=== PATIENT | female | born 1985 | race Caucasian/White ===

== ENCOUNTER 2020-07-13 21:57 | Emergency (ER) | payer OTHER ==
[2020-07-13 23:23] VITALS: TEMP 98.6
[2020-07-14] MEDS: KETOROLAC 15 MG/ML 1 ML VIAL IM STA ×2 (01:16→01:19)
--- NOTE | 2020-07-14 01:16 | ED ---
Back Pain HPI - General Chief Complaint: Back Pain/Injury Stated Complaint: Fall,Back pain Time Seen by Provider: 07/14/20 00:26 Source: patient, EMS, RN notes reviewed Limitations: no limitations - History of Present Illness Initial Comments: 35-year-old female presented emergency department status post fall on her back while getting out of the shower. She notes that her left buttock and low back area is very painful. She is able to ambulate but has significant pain. She was sleeping when provider walk-in room to interview and examine her. She woke up kind of hazy and groggy but was able to move both lower extremities. Full range of motion and strength of her lower extremities. She wanted to come to the ER to get checked out to make sure nothing was broken. She stated that her pain was a 10 out of 10 constant. She denied any bladder or bowel incontinence. She denied any loss of consciousness or hitting her head. She denied any chest pain first breath headache nausea vomiting diarrhea constipation fever fatigue chills weakness numbness tingling - Related Data Home Medications Medication Instructions Recorded Confirmed No Known Home Medications 07/14/20 07/14/20 Allergies Allergy/AdvReac Type Severity Reaction Status Date / Time No Known Allergies Allergy Verified 07/13/20 23:23 Review of Systems ROS Statement: Those systems with pertinent positive or pertinent negative responses have been documented in the HPI. ROS Other: All systems not noted in ROS Statement are negative. Past Medical History Past Medical History: No Reported History History of Any Multi-Drug Resistant Organisms: None Reported Past Surgical History: No Surgical Hx Reported Past Psychological History: Anxiety, Depression Smoking Status: Current every day smoker Past Alcohol Use History: None Reported Past Drug Use History: Methamphetamine General Exam Limitations: no limitations General appearance: alert, in no apparent distress Head exam: Present: atraumatic, normocephalic, normal inspection ENT exam: Present: normal exam, mucous membranes moist Neck exam: Present: normal inspection. Absent: tenderness, meningismus, lymphadenopathy Respiratory exam: Present: normal lung sounds bilaterally. Absent: respiratory distress, wheezes, rales, rhonchi, stridor Cardiovascular Exam: Present: regular rate, normal rhythm, normal heart sounds. Absent: systolic murmur, diastolic murmur, rubs, gallop, clicks GI/Abdominal exam: Present: soft, normal bowel sounds. Absent: distended, tenderness, guarding, rebound, rigid Extremities exam: Present: normal inspection, full ROM, normal capillary refill, other (Positive well leg raise test on the left.). Absent: tenderness, pedal edema, joint swelling, calf tenderness Back exam: Present: normal inspection Neurological exam: Present: alert, oriented X3, CN II-XII intact Psychiatric exam: Present: normal affect, normal mood Skin exam: Present: warm, dry, intact, normal color. Absent: rash Course Vital Signs 07/13/20 07/14/20 23:18 01:26 Temperature 98.6 F Pulse Rate 79 84 Respiratory 18 16 Rate Blood Pressure 133/63 101/61 O2 Sat by Pulse 98 97 Oximetry Medical Decision Making - Medical Decision Making 35 she'll female complaining of low back and hip pain. X-ray of the lumbar spine and bilateral hips ordered. 15 mg of Toradol ordered. Patient declined Toradol and other pain medications. X-rays negative for any acute fractures or dislocations or subluxations. Case discussed with Dr. Price, patient can discharge back to [facility] - Radiology Data Radiology results: report reviewed, image reviewed Lumbar x-ray: No acute fracture or subluxation. Pelvis x-ray: No acute osseous abnormality, osteitis pubis Disposition Clinical Impression: Low back pain, Left hip pain, Fall Disposition: HOME SELF-CARE Condition: Stable Instructions (If sedation given, give patient instructions): Acute Low Back Pain (ED) Additional Instructions: Please return to the Emergency Department if symptoms worsen or any other concerns. Follow-up with primary care in 3-5 days. Take [id number] anti-inflammatories for pain management. Rest ice compress, avoid any strenuous activity. Is patient prescribed a controlled substance at d/c from ED?: No Referrals: None,Stated [Primary Care Provider] - 1-2 days Time of Disposition: 01:53
[2020-07-14 01:27] VITALS: RESP 16
--- NOTE | 2020-07-14 01:38 | XR ---
EXAM: XR Bilateral Hips With Pelvis When Performed, 2 or 3 Views CLINICAL HISTORY: [email or web address].[email or web address] XR Reason: Low back hip pain TECHNIQUE: Three or four views of the bilateral hips with pelvis when performed. COMPARISON: No relevant prior studies available. FINDINGS: Bones/joints: Postsurgical changes from fusion in the lumbosacral spine with stabilization hardware and bilateral iliac fixation. There is some sclerosis and small erosions and irregularity in the pubic symphysis. No acute fracture. No dislocation. Soft tissues: Unremarkable. Gastrointestinal tract: Large amount of stool in the colon. IMPRESSION: 1. No acute osseous abnormality. 2. Osteitis pubis.
--- NOTE | 2020-07-14 01:43 | XR ---
EXAM: XR Lumbosacral Spine, 2 or 3 Views CLINICAL HISTORY: ITS.[email or web address] XR Reason: Back pain TECHNIQUE: Frontal and lateral views of the lumbar spine and sacrum. COMPARISON: No relevant prior studies available. FINDINGS: Vertebrae: Unremarkable. No acute fracture. Normal alignment. Sacrum/coccyx: Postsurgical changes from posterior fusion and stabilization in the lumbosacral spine and bilateral iliac fixation. Corpectomy changes in the lower lumbar spine. Hardware is intact. No acute fracture. Disc spaces: No acute findings. Mild degenerative disc disease. Soft tissues: Unremarkable. Gastrointestinal tract: Large amount of stool in the colon. IMPRESSION: No acute fracture or subluxation.
[2020-07-14 02:28] VITALS: BP 107/74; PULSE 95
== END 2020-07-14 02:28 | disposition home or self-care (01) ==
LOC: EC 21:57
DX: M54.5 Low back pain (principal); M25.552 Pain in left hip; F17.200 Nicotine dependence, unspecified, uncomplicated; F41.9 Anxiety disorder, unspecified; F32.9 Major depressive disorder, single episode, unspecified; W18.30XA Fall on same level, unspecified, initial encounter
CPT/HCPCS: 72100; 73521; 99284